=== PATIENT | male | born 1965 | race Caucasian/White ===

== ENCOUNTER 2017-10-09 06:58 | Day surgery (SDC) | payer MEDICAID ==
[2017-09-28 07:02] VITALS: BMI 29.0
[2017-10-09] MEDS ORDERED: Propofol 10 mg/ml Inj (20 ML) ONE ×2 (08:01→08:34)
[2017-10-09] MEDS ORDERED: Lidocaine 1% Inj (20ml) ONE (08:02)
[2017-10-09] MEDS ORDERED: Sodium Chloride 0.9% 1,000 ML IV SCH (09:00)
[2017-10-09 09:07] VITALS: O2SAT 100
[2017-10-09 09:33] VITALS: BP 122/87; PULSE 64; RESP 15; TEMP 97.8
== END 2017-10-09 10:45 | disposition home or self-care (01) ==
LOC: ENDO 06:58
PROVIDERS: ATTEND Internal Medicine
DX: D12.2 Benign neoplasm of ascending colon (principal); D12.4 Benign neoplasm of descending colon; D12.5 Benign neoplasm of sigmoid colon; D12.3 Benign neoplasm of transverse colon; K64.8 Other hemorrhoids; E78.5 Hyperlipidemia, unspecified; Z12.11 Encounter for screening for malignant neoplasm of colon
CPT/HCPCS: 45380; 88305; J2704; J7040 ×2